=== PATIENT | male | born 1950 | race Caucasian/White ===

== ENCOUNTER 2019-12-26 12:04 | Emergency (ER) | payer MEDICARE, BC ==
[2019-12-26] MEDS ORDERED: Piperacillin/Tazobactam 3.375 GM in Sodium Chloride 0.9% 100 ML IV ONE (12:38)
[2019-12-26] MEDS ORDERED: Sodium Chloride 0.9% 10 ML Syringe FLUSH PRN (12:39)
--- NOTE | 2019-12-26 12:45 | EDM.PDOC ---
ED HPI GENERAL MEDICAL PROBLEM - General Chief Complaint: Skin Complaint Stated Complaint: PRESSURE SORE?? Time Seen by Provider: 12/26/19 12:35 Source of Information: Reports: Patient History Limitations: Reports: No Limitations - History of Present Illness INITIAL COMMENTS - FREE TEXT/NARRATIVE: Patient is here today for pressure ulcers on his left hip/buttock. He has been wheelchair bound for about 50 years and has dealt with pressure sores before. He contacted his primary care provider this week and sent pictures of the wound. A referral for wound care was placed, but he is not able to get in until saturday, 2 days from now. He denies any odor from the sores, but they are draining and red. He does appreciate a burning sensation, but that is all due to his past vertebra l injury. No fevers, but he is shaking a little. Onset: Gradual Location: Reports: Other (buttock) Treatments HABILITATION SPECIALIST: Reports: Dressing(s) - Related Data Allergies Allergy/AdvReac Type Severity Reaction Status Date / Time No Known Allergies Allergy Verified 12/26/19 12:42 Home Meds: Home Meds nitrofurantoin macrocrystaL [Nitrofurantoin] 100 mg PO DAILY 12/26/19 [History] ED ROS GENERAL - Review of Systems Review Of Systems: Comprehensive ROS is negative, except as noted in HPI. ED EXAM, SKIN/RASH Exam: See Below Exam Limited By: No Limitations General Appearance: Alert, WD/WN, No Apparent Distress Eye Exam: Bilateral Eye: Normal Inspection Ears: Normal External Exam Head: Atraumatic, Normocephalic Neck: Normal Inspection, Supple Respiratory/Chest: No Respiratory Distress, Lungs Clear, Normal Breath Sounds, No Accessory Muscle Use, Chest Non-Tender Cardiovascular: Normal Peripheral Pulses, Regular Rate, Rhythm, No Edema, No Mur mur GI/Abdominal: Soft, Non-Tender, No Distention (Male) Exam: Deferred Rectal (Males) Exam: Deferred Back Exam: Normal Inspection, Full Range of Motion Extremities: Normal Capillary Refill Neurological: Alert, Oriented, Normal Cognition, Other (stable known deficits from previous injury) Psychiatric: Normal Affect, Normal Mood Skin: Warm, Wound/Incision (2 pressure sores on left hip/buttock, each about 1-2 cm in diameter with foul smelling purulent discharge and surrounding erythema) Lymphatic: No Adenopathy Course - Vital Signs Last Recorded V/S: Last Vital Signs Temp 96.7 F L 12/26/19 12:43 Pulse 78 12/26/19 12:43 Resp 18 12/26/19 12:43 BP 101/56 L 12/26/19 12:43 Pulse Ox 99 12/26/19 12:43 - Orders/Labs/Meds Orders: Active Orders 24 hr Category Date Time Status Peripheral IV Care [RC] . DIRECTED Care 12/26/19 12:39 Ordered CULTURE BLOOD [BC] Stat Lab 12/26/19 12:39 Ordered CULTURE BLOOD [BC] Stat Lab 12/26/19 12:39 Ordered Sodium Chloride 0.9% [Saline Flush] Med 12/26/19 12:39 Ordered 10 ml FLUSH ASDIRECTED PRN Blood Culture x2 Reflex Set [OM.PC] Stat Oth 12/26/19 12:39 Ordered Peripheral IV Insertion Adult [OM.PC] Stat Oth 12/26/19 12:39 Ordered Medication Orders Sodium Chloride (Saline Flush) 10 ml FLUSH ASDIRECTED PRN PRN Reason: Keep Vein Open Last Admin: 12/26/19 13:14 Dose: 10 ml Documented by: Labs: Laboratory Tests 12/26/19 12/26/19 12/26/19 Range/Units 12:50 12:50 12:50 WBC 16.3 H (5.0-10.0) 10^3/uL RBC 4.16 L (4.6-6.2) 10^6/uL Hgb 13.2 L (14.0-18.0) g/dL Hct 39.2 L (40.0-54.0) % MCV 94.2 (80-100) fL MCH 31.7 (27.0-34.0) pg MCHC 33.7 (33.0-35.0) g/dL Plt Count 325 (150-450) 10^3/uL Neut % (Auto) 91.7 H (42.2-75.2) % Lymph % (Auto) 3.0 L (20.5-50.1) % Marshall % (Auto) 5.0 (2-8) % Eos % (Auto) 0.2 L (1.0-3.0) % Baso % (Auto) 0.1 (0.0-1.0) % Sodium 137 (136-145) mmol/L Potassium 3.0 L (3.5-5.1) mmol/L Chloride 99 (98-107) mmol/L Carbon Dioxide 29 (21-32) mmol/L Anion Gap 12.0 (7-13) mEq/L BUN 20 H (7-18) mg/dL Creatinine 0.93 (0.70-1.30) mg/dL Est Cr Clr Drug Dosing 71.51 mL/min Estimated GFR (MDRD) > 60 BUN/Creatinine Ratio 21.5 (No establ ref range) Glucose 132 H (74-99) mg/dL Lactic Acid 2.5 H* (0.4-2.0) mmol/L Calcium 9.5 (8.5-10.1) mg/dL Total Bilirubin 0.7 (0.2-1.0) mg/dL AST 26 (15-37) U/L ALT 28 (16-63) U/L Alkaline Phosphatase 111 (46-116) U/L Total Protein 7.5 (6.4-8.2) g/dL Albumin 2.2 L (3.4-5.0) g/dL Globulin 5.3 Albumin/Globulin Ratio 0.42 Meds: Medications Generic Name Dose Route Start Last Admin Trade Name Freq PRN Reason Stop Dose Admin Sodium Chloride 10 ml 12/26/19 12:39 12/26/19 13:14 Saline Flush FLUSH 10 ml ASDIRECTED PRN Administration Keep Vein Open Discontinued Medications Generic Name Dose Route Start Last Admin Trade Name Freq PRN Reason Stop Dose Admin Piperacillin Sod/Tazobactam 100 mls @ 200 mls/hr 12/26/19 12:38 12/26/19 13:13 Sod 3.375 gm/ Sodium Chloride IV 12/26/19 13:07 200 mls/hr ONETIME ONE Administration Departure - Departure Time of Disposition: 13:37 Disposition: Home, Self-Care 01 Condition: Good Clinical Impression: Pressure ulcer Qualifiers: Pressure injury location: hip Pressure injury stage: unstageable Laterality: left Qualified Code(s): L89.220 - Pressure ulcer of left hip, unstageable Pressure ulcer of hip Qualifiers: Pressure injury stage: stage 2 Laterality: right Qualified Code(s): L89.212 - Pressure ulcer of right hip, stage 2 - Discharge Information Instructions: Preventing Pressure Injuries Forms: ED Department Discharge Additional Instructions: Keep upcoming appointment with wound care in 2 days Zosyn given in the ER Augmentin BID for 10 days. Reviewed potential side effects including nausea and loose stools. Advised to take the medication with food Reviewed wound care Sepsis Event Note (ED) - Focused Exam Vital Signs: Vital Signs Temp Pulse Resp BP Pulse Ox 12/26/19 12:43 96.7 F L 78 18 101/56 L 99 - My Orders Last 24 Hours: My Active Orders 12/26/19 12:39 Peripheral IV Care [RC] . DIRECTED CULTURE BLOOD [BC] Stat CULTURE BLOOD [BC] Stat Sodium Chloride 0.9% [Saline Flush] 10 ml FLUSH ASDIRECTED PRN Blood Culture x2 Reflex Set [OM.PC] Stat Peripheral IV Insertion Adult [OM.PC] Stat - Assessment/Plan Last 24 Hours: My Active Orders 12/26/19 12:39 Peripheral IV Care [RC] . DIRECTED CULTURE BLOOD [BC] Stat CULTURE BLOOD [BC] Stat Sodium Chloride 0.9% [Saline Flush] 10 ml FLUSH ASDIRECTED PRN Blood Culture x2 Reflex Set [OM.PC] Stat Peripheral IV Insertion Adult [OM.PC] Stat
[2019-12-26 13:16] LABS: CHLORIDE,CL 99 mmol/L (98-107); SODIUM,NA 137 mmol/L (136-145)
== END 2019-12-26 13:58 | disposition home or self-care (01) ==
LOC: DL.ED 12:04
DX: L89.212 Pressure ulcer of right hip, stage 2 (principal); L89.220 Pressure ulcer of left hip, unstageable
CPT/HCPCS: 36415; 80053; 83605; 85025; 87040; 96365; 99283; J2543; J7050